=== PATIENT | male | born 1995 | race Caucasian/White ===

== ENCOUNTER 2016-11-12 12:01 | Emergency (ER) | payer BC ==
[~2016-11-12] VITALS: Ht 172.7 cm; Wt 95.3 kg
--- NOTE | 2016-11-12 12:01 | NUR ---
Patient BIBA to bed 5 at this time.
[2016-11-12 12:19] VITALS: BP 158/91
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
--- NOTE | 2016-11-12 12:34 | NUR ---
ER MD DR. ALLISON EVALUATING PT AT BEDSIDE.
[2016-11-12 13:40] VITALS: BP 128/82
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
== END 2016-11-12 13:40 | disposition home or self-care (01) ==
LOC: MED 12:01
DX: F43.9 Reaction to severe stress, unspecified (principal); R03.0 Elevated blood-pressure reading, without diagnosis of hypertension

== ENCOUNTER 2019-11-19 09:11 | Emergency (ER) | payer BC, OTHER ==
[~2019-11-19] VITALS: Ht 152.4 cm; Wt 86.2 kg
--- NOTE | 2019-11-19 09:12 | NUR ---
PT AMBULATED TO ER BED 4 AT THIS TIME
[2019-11-19 09:19] VITALS: BP 144/76
--- NOTE | 2019-11-19 09:27 | NUR ---
DR. CRAVEN EVALUATING PT AT BEDSIDE
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
[2019-11-19] MEDS ORDERED: HYDROcodone/APAP 5/325 MG 1 TAB TAB PO ONE (09:30)
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
--- NOTE | 2019-11-19 10:00 | NUR ---
XRAY AT BEDSIDE
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
--- NOTE | 2019-11-19 10:25 | NUR ---
PT STATES PAIN IS NOW 4/10 AT THIS TIME
--- NOTE | 2019-11-19 10:30 | NUR ---
X RAY AT BEDSIDE
[2019-11-19 10:45] VITALS: BP 141/63
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
== END 2019-11-19 10:46 | disposition home or self-care (01) ==
LOC: MED 09:11
DX: S43.004A Unspecified dislocation of right shoulder joint, initial encounter (principal); W50.0XXA Accidental hit or strike by another person, initial encounter; Y93.89 Activity, other specified; Y92.89 Other specified places as the place of occurrence of the external cause; Y99.8 Other external cause status; S43.401A Unspecified sprain of right shoulder joint, initial encounter
CPT/HCPCS: 73020; 73030; 73060; 99284